=== PATIENT | female | born 1975 | race Caucasian/White ===

== ENCOUNTER 2016-07-29 08:03 | Emergency (ER) | payer OTHER ==
[~2016-07-29] VITALS: Ht 167.6 cm; Wt 76.2 kg
[~2016-07-29 08:03] MED LIST: AUGMENTIN 500-1 EACH PO; FLEXERIL10 MG PO; IBUPROFEN600 MG PO; ZOFRAN4 M1 SL
--- NOTE | 2016-07-29 09:24 | ED CARDIAC/CP/PALPITATIONS ---
History of Present Illness General Chief Complaint: Dyspnea (COPD, CHF, Other) Stated Complaint: PAIN IN L SIDE, DIFFICULT TO BREATHE Source: patient Exam Limitations: no limitations Vital Signs & Intake/Output Vital Signs & Intake/Output Vital Signs Date Time Temp Pulse Resp B/P B/P Pulse O2 O2 Flow FiO2 Mean Ox Delivery Rate 07/29 1037 97.8 66 20 123/74 98 Room Air 07/29 0821 98 Room Air 07/29 0806 96.9 99 18 144/98 96 Room Air Allergies Coded Allergies: Sulfa (Sulfonamide Antibiotics) (RASH 07/20/15) sulfamethoxazole (From SEPTRA) (UNKNOWN 07/20/15) trimethoprim (From ) (UNKNOWN 07/20/15) Reconcile Medications Cyclobenzaprine HCl 10 MG TABLET 1 TAB PO TID SPASMS Ibuprofen 800 MG TABLET 1 TAB PO TID pain Tramadol HCl 50 MG TABLET 1 TAB PO BIDP PRN PAIN Triage Note: 41 Y/O FEMALE LEFT BACK PAIN SINCE WAKING THIS AM. STATES SHE WOKE UP AND NOTICED THE PAIN WHICH IS WORSE WITH DEEP BREATHS. DENIES FEELING SOB, DENIES COUGH. HX PNEUMOTHORAX WITH CHEST TUBE ON SAME SIDE 10 YEARS AGO. SPEAKING COMPLETE SENTENCES WITH NO DISTRESS, SAT 97%. AFEBRILE. Triage Nurses Notes Reviewed? yes Onset: Abrupt Duration: hour(s):, intermittent Timing: recent history Quality/Severity: moderate, severe Radiation: no radiation : No Patient currently breastfeeds: No HPI: 41-year-old female comes into emergency room with complaints of complaints of left sided rib pain in her back. Pain is worse with a deep breath. Symptoms began around 4 AM this morning. Denies any anterior chest pain. Denies any vomiting. Pain is worse with lying flat. Denies any cough. Denies any fever or chills body aches. Nothing seems to make the symptoms better or worse. Denies any other associated symptoms. (GILMAR DICK) Past History Travel History Traveled to [place] past 21 day No Medical History Any Pertinent Medical History? 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 No (GILMAR DICK) Review of Systems Review of Systems Constitutional: Reports: no symptoms. EENTM: Reports: no symptoms. Respiratory: Reports: see HPI. Cardiovascular: Reports: no symptoms. GI: Reports: no symptoms. Genitourinary: Reports: no symptoms. Musculoskeletal: Reports: see HPI. Skin: Reports: no symptoms. Neurological/Psychological: Reports: no symptoms. Hematologic/Endocrine: Reports: no symptoms. Immunologic/Allergic: Reports: no symptoms. All Other Systems: Reviewed and Negative (GILMAR DICK) Physical Exam Physical Exam General Appearance: well developed/nourished, alert, awake Head: atraumatic, normal appearance Eyes: Bilateral: normal appearance. Ears, Nose, Throat: normal ENT inspection, hearing grossly normal Neck: normal inspection, full range of motion Respiratory: normal breath sounds, no respiratory distress, point tenderness left posterior rib Cardiovascular: regular rate/rhythm Gastrointestinal: soft, non-tender Back: normal inspection Extremities: normal inspection, normal range of motion, no edema Neurologic/Psych: awake, alert, oriented x 3, normal gait, normal mood/affect Skin: intact, normal color Core Measures ACS in differential dx? No Severe Sepsis Present: No Septic Shock Present: No (GILMAR DICK) Progress Differential Diagnosis: AMI, aortic dissection, costochondritis, musculoskeletal pain, myocarditis, pneumonia, pneumothorax, pulmonary embolism, PUD/GERD, PVCs/ PACs, respiratory failure, rib fracture, unstable angina Plan of Care: Orders Procedure Date/time Status TROPONIN LEVEL 07/29 912 Complete D-DIMER 07/29 912 Complete COMPREHENSIVE METABOLIC PANEL 07/29 912 Complete CBC WITHOUT DIFFERENTIAL 07/29 912 Complete EKG 07/29 912 Active Laboratory Tests 07/29/16 0930: Anion Gap 11, Estimated GFR > 60, BUN/Creatinine Ratio 10.0, Glucose 86, Calcium 9.1, Total Bilirubin 0.4, AST 32, ALT 46, Alkaline Phosphatase 94, Troponin I < 0.01, Total Protein 7.2, Albumin 4.0, Globulin 3.2, Albumin/Globulin Ratio 1.3, D-Dimer < 200, CBC w Diff NO MAN DIFF REQ, RBC 4.71, MCV 86.5, MCH 28.2, RDW 13.8, MPV 8.4, Gran % 50.5, Lymphocytes % 37.1, Monocytes % 11.5 H, Eosinophils % 0.8, Basophils % 0.1, Absolute Granulocytes 4.1, Absolute Lymphocytes 3.0, Absolute Monocytes 0.9 H, Absolute Eosinophils 0.1, Absolute Basophils 0, PUBS MCHC 32.6 L Diagnostic Imaging: Viewed by Me: Radiology Read. Discussed w/RAD: Radiology Read. Radiology Impression: SERVICE DATE: 07/29/16 EXAM TYPE: RAD - XRY-CHEST XRAY, PA AND LATERAL EXAMINATION: XR CHEST CLINICAL INFORMATION: Left rib pain COMPARISON: Chest x-rays most recent prior dated 10/03/2015 TECHNIQUE: 2 views of the chest were obtained. FINDINGS: Stable cardiomediastinal silhouette. Slight elevation of the right hemidiaphragm noted again. There is adjacent streaky density noted in the left base retrocardiac region compatible with streaky minor infiltrate or atelectasis. Mild prominence of the pulmonary markings. IMPRESSION: Streaky infiltrate or atelectasis left base. DICTATED BY: CHAYA DENG MD DATE/TIME DICTATED:07/29/161030 SPEEDER OPERATOR:ALESSANDRO DATE/TIME TRANSCRIBED:07/29/161030 Initial ED EKG: normal intervals, normal p-waves, normal QRS complex, normal sinus rhythm, rate (75) (GILMAR DICK) Departure Departure Disposition: HOME OR SELF CARE Condition: Stable Clinical Impression Primary Impression: Rib pain on left side Referrals: [facility] (PCP/Family) Additional Instructions: Take ibuprofen, Flexeril, and tramadol as prescribed. Follow-up with primary care doctor. Return if any concerns worsening symptoms. Please go over all results of today's visit with your primary care doctor. Contact your primary care doctor to let them know you were here in the emergency room. There may be nonspecific findings which may not be related to your visit today here in the emergency room but may require further evaluation and chronic monitoring by your primary care doctor. If you had a laceration today the chance of foreign body always remains. You should follow-up with your primary care doctor for recheck in 3-5 days for a wound check. If you had an x-ray done there is a chance that a fracture could have been missed on initial read and you should follow-up with your primary care doctor for repeat x-rays if symptoms persist. If your blood pressure was elevated here in the emergency room please have rechecked by her primary care doctor within the next 48 hours by your primary care doctor. If you were prescribed a narcotic here in the emergency room or any type of controlled substances you're not allowed to drive while taking this medication or operate any type of heavy machinery. Narcotics can make you feel lightheaded dizziness nausea and can cause constipation. You may need to cloth picker a stool softener. Thank you for choosing [facility] emergency room. Please return to the emergency room immediately if you have any other concerns worsening of symptoms. Departure Forms: Customer Survey General Discharge Information Prescriptions: Current Visit Scripts Ibuprofen 1 TAB PO TID #30 TAB Cyclobenzaprine HCl 1 TAB PO TID #20 TAB Tramadol HCl 1 TAB PO BIDP PRN PAIN #10 TAB Comments 07/29/2016 12:27:20 PM Patient clinically looks well. Patient is nontoxic-appearing. Patient is in no apparent distress. Patient resting comfortably in room. Pain is reproducible in the back. Worse with range of motion. Patient seen by Dr. Vargas and he agrees with plan of care. Negative d-dimer. No suspicion for pulmonary embolism. Patient will return if she has any concerns worsening symptoms. Patient understands and agrees with plan of care. (GILMAR DICK) PA/ASSET ANALYST Co-Sign Statement Statement: ED Attending supervision documentation- [X] I saw and evaluated the patient. I have also reviewed all the pertinent lab results and diagnostic results. I agree with the findings and the plan of care as documented in the PA's/ASSET ANALYST's documentation. [] I have reviewed the ED Record and agree with the PA's/ASSET ANALYST's documentation. [] Additions or exceptions (if any) to the PAs/ASSET ANALYST's note and plan are summarized below: [] (SLY MEYERS,MASOUD Kirby) Critical Care Note Critical Care Note Critical Care Time: non-applicable (GILMAR DICK)
[2016-07-29 09:38] LABS: ABSOLUTE BASOPHIL COUNT 0 /CUMM (0.0-0.2); ABSOLUTE EOSINOPHIL COUNT 0.1 /CUMM (0.0-0.7); ABSOLUTE GRANULOCYTE CT 4.1 /CUMM (1.4-6.5); ABSOLUTE MONOCYTE COUNT 0.9 /CUMM (0.10-0.60); BASOPHIL % 0.1 % (0.0-2.0); EOSINOPHIL % 0.8 % (0-5); GRANULOCYTE % 50.5 % (42.2-75.2); HEMATOCRIT 40.8 % (37-47); MEAN CORPUSCULAR HGB 28.2 PG (27.0-31.0); MEAN CORPUSCULAR HGB CONC 32.6 G/DL (33.0-37.0); MEAN CORPUSCULAR VOLUME 86.5 FL (81.0-99.0); MEAN PLATELET VOLUME 8.4 FL (7.4-10.4); PLATELET COUNT 387 /CUMM (130-400); RBC DISTRIBUTION WIDTH 13.8 % (11.5-14.5); RED BLOOD CELL CT 4.71 /CUMM (4.20-5.40)
--- NOTE | 2016-07-29 10:35 | RADIOLOGY REPORT ---
EXAMINATION: XR CHEST CLINICAL INFORMATION: Left rib pain COMPARISON: Chest x-rays most recent prior dated 10/03/2015 TECHNIQUE: 2 views of the chest were obtained. FINDINGS: Stable cardiomediastinal silhouette. Slight elevation of the right hemidiaphragm noted again. There is adjacent streaky density noted in the left base retrocardiac region compatible with streaky minor infiltrate or atelectasis. Mild prominence of the pulmonary markings. IMPRESSION: Streaky infiltrate or atelectasis left base.
[2016-07-29 10:37] VITALS: BP 123/74
[2016-07-29] MEDS ORDERED: IBUPROFEN800 M1 PO (11:36)
[2016-07-29] MEDS ORDERED: TRAMADOL HCL50 M1 PO (11:36)
[2016-07-29] MEDS ORDERED: CYCLOBENZAPRINE10 M1 PO (11:36)
== END 2016-07-29 11:44 ==
LOC: ERH 08:03
PROVIDERS: Physician Assistant Medical
DX: R07.81 Pleurodynia (principal)
CPT/HCPCS: 93005; 93010; 96372; J1885